=== PATIENT | female | born 1965 | race Two or more races ===

== ENCOUNTER → 2017-03-27 | Outpatient (CLI) | payer BC ==
[2014-04-28 17:12] VITALS: BP 136/70
[~2017-03-27] MED LIST: HYDR200T5 PO; LOSA1TAB16 PO; OMEP20CA9 PO; PRED5TAB PO; SERT25TA4 PO; SULF-143 PO
--- NOTE | 2017-03-27 16:10 | KCIC ---
Exam performed: Bone densitometry. History: Postmenopausal, on steroids Discussion: Bone Densitometry was performed with dual photon absorption of the lumbar spine and proximal femur. Lumbar Spine: Bone density is 0.886g/cm2 for L1-L4. T-Score is -1.5 Left Femur: Bone density is 0.747g/cm2. T-Score is -1.6. Impression: Findings consistent with osteopenia. Electronically signed by: Tre Rodriges MD (03/27/2017 4:07 PM) [id number]
--- NOTE | 2017-03-27 16:18 | KCIC ---
Bilateral digital screening mammograms: Reason for examination: Routine screening. Comparison is made to previous studies dated 06/29/2015 and 05/20/2014. The skin and nipples show no abnormalities. No abnormal axillary lymph nodes are seen. The breast parenchyma is heterogeneously dense. (Breast density: Category C) There are no dominant masses, suspicious calcifications or architectural distortion. A few benign calcifications are again seen. Impression: No evidence of malignancy. Recommend routine screening. Your patient's mammogram demonstrates that she has dense breast tissue (breast density category C or D), which could hide abnormalities, and if she has other risk factors for breast cancer that have been identified, she might benefit from supplemental screening tests that may be suggested by you as her ordering physician. Dense breast tissue, in and of itself, is a relatively common condition. Therefore, this information is not provided to cause undue concern, but rather to raise your awareness and to promote discussion with your patient regarding the presence of other risk factors, in addition to dense breast tissue. Your patient's mammography results will be sent to her. BI-RADS Category 2: Benign. "Our facility is accredited by the [employer] Mammography [employer]." This patient's information has been entered into a reminder system for the patient to be notified with the results of her examination and a target date for the next mammogram. Electronically signed by: Kita Yusuf MD (03/27/2017 4:15 PM) [id number]
== END | disposition home or self-care (01) ==
LOC: KCIC DEXA 15:07
PROVIDERS: ATTEND Family Medicine
DX: Z12.31 Encounter for screening mammogram for malignant neoplasm of breast (principal); M85.88 Other specified disorders of bone density and structure, other site; Z78.0 Asymptomatic menopausal state
CPT/HCPCS: 77080; G0202; 77067

== ENCOUNTER → 2019-07-11 | Outpatient (CLI) | payer BC ==
[2014-04-28 17:12] VITALS: BP 136/70
[~2019-07-11] MED LIST changes: +CONTRAST GIVEN. MC PRN; +IOHEXOL 240 MG/ML 50ML VIAL. PO ONE; +IOHEXOL 300 MG/ML 100ML VIAL. IV ONE; -LOSA1TAB16 PO; +LOSA1TAB19 PO; +OMEP-229 PO; -OMEP20CA9 PO
--- NOTE | 2019-07-11 16:30 | RAD ---
PQRS Compliance statement: One or more of the following individualized dose reduction techniques were utilized for this examination: 1. Automated exposure control. 2. Adjustment of the mA and/or kV according to patient size. 3. Use of iterative reconstruction technique. Indication: Abdominal pain. TECHNIQUE: CT abdomen and pelvis with IV contrast with multiplanar reformats. COMPARISON: 11/04/2013 FINDINGS: Heart is moderately enlarged in size. No pericardial or pleural effusion. Chronic interstitial changes in the bilateral visualized lung bases with focal consolidation in the lateral left lower lobe. Patulous visualized esophagus containing oral contrast. Liver, pancreas, adrenals and kidneys are within normal limits. No free pelvic fluid or ascites. 3.5 x 2.8 cm low attenuating lesion is seen in the spleen which is new from previous exam from 2013. Status post cholecystectomy. No enlarged retroperitoneal or pelvic adenopathy. Uterus is present. Normal appendix. Dilated loops of jejunum noted containing oral contrast. Urinary bladder demonstrates no radiopaque stone. No pneumoperitoneum. No suspicious bony lesion. IMPRESSION: Dilated loops of jejunum containing oral contrast, nonspecific. No convincing evidence of bowel obstruction. Follow-up recommended. Splenic lesion, new from previous CT from 2018 may be a pseudocyst. Attention on future imaging. Electronically signed by: Kenneth Ambriz DO (07/11/2019 4:27 PM) [facility]
== END | disposition home or self-care (01) ==
LOC: CT 14:30
PROVIDERS: ATTEND Internal Medicine
DX: I51.7 Cardiomegaly (principal); Z90.49 Acquired absence of other specified parts of digestive tract
CPT/HCPCS: 74177; Q9966; Q9967

== ENCOUNTER → 2020-03-06 | Outpatient (CLI) | payer BC ==
[2014-04-28 17:12] VITALS: BP 136/70
[~2020-03-06] MED LIST changes: -CONTRAST GIVEN. MC PRN; -IOHEXOL 240 MG/ML 50ML VIAL. PO ONE; -IOHEXOL 300 MG/ML 100ML VIAL. IV ONE; -OMEP-229 PO; +OMEP20CA16 PO
--- NOTE | 2020-03-06 17:40 | KCIC ---
Bilateral digital screening mammograms: Reason for examination: Routine screening. Comparison is made to previous studies dated between 03/27/2017 and 05/20/2014. Interpretation was made with the benefit of CAD. The skin and nipples show no abnormalities. No abnormal axillary lymph nodes are seen. The breast parenchyma is extremely dense. (Breast density: Category D) There continues to be some nodular asymmetry posterior superiorly in the left breast on oblique view which is unchanged. There are no new dominant masses, suspicious calcifications or architectural distortion. A few benign calcifications are again seen. Impression: No evidence of malignancy. Recommend routine screening. Your patient's mammogram demonstrates that she has dense breast tissue (breast density category C or D), which could hide abnormalities, and if she has other risk factors for breast cancer that have been identified, she might benefit from supplemental screening tests that may be suggested by you as her ordering physician. Dense breast tissue, in and of itself, is a relatively common condition. Therefore, this information is not provided to cause undue concern, but rather to raise your awareness and to promote discussion with your patient regarding the presence of other risk factors, in addition to dense breast tissue. Your patient's mammography results will be sent to her. BI-RADS Category 2: Benign. "Our facility is accredited by the [employer]ammography [employer]." This patient's information has been entered into a reminder system for the patient to be notified with the results of her examination and a target date for the next mammogram. Electronically signed by: Kita Yusuf MD (03/06/2020 5:37 PM) [id number]
== END | disposition home or self-care (01) ==
LOC: KCIC MAMMO 13:47
PROVIDERS: ATTEND Family Medicine
DX: Z12.31 Encounter for screening mammogram for malignant neoplasm of breast (principal); N64.89 Other specified disorders of breast
CPT/HCPCS: 77067

== ENCOUNTER → 2021-05-27 | Outpatient (CLI) | payer BC ==
[2014-04-28 17:12] VITALS: BP 136/70
[~2021-05-27] MED LIST changes: +SERT-266 PO; -SERT25TA4 PO
--- NOTE | 2021-05-27 16:36 | RAD ---
EXAM: Thyroid sonogram. HISTORY: Adenoma. TECHNIQUE: Sonographic imaging of the thyroid was performed. COMPARISON: 06/10/2014. FINDINGS: The right thyroid lobe measures 5.6 x 2.4 x 2.4 cm. The left thyroid lobe measures 4.7 x 1. 3 x 1.5 cm. The thyroid isthmus measures 4 mm. The thyroid parenchyma is diffusely heterogeneous. There are multiple right thyroid nodules. The largest nodule is seen within the superior right thyroi d lobe. This is heterogeneous and predominantly isoechoic with indistinct margins. This demonstrates wider than tall morphology and measures 2.8 x 2.4 x 1.4 cm, previously measuring 3.0 x 1.9 x 1.3 cm. The second largest nodule on along the posterior mid zone of the right thyroid lobe measuring 2.4 x 1 .6 x 1.1 cm, previously measuring 1.6 x 1.2 x 0.8 cm. This is circumscribed, hypoechoic and demonstra gilmer a wider than tall morphology. The third largest nodule on the right is seen within the lower pole measuring 1.4 x 1.2 x 0.7 cm, pre viously measuring 1.7 x 1.1 x 0.6 cm. This is heterogeneous and predominantly isoechoic with indistin ct margins and wider than tall morphology. The fourth largest nodule on the right is seen within the upper mid zone measuring 1.1 x 1.0 x 0.8 cm , previously measuring 0.9 x 0.9 x 0.9 cm. This is hypoechoic and peripherally calcified. There are multiple left thyroid nodules. The largest nodule is seen within the superior left thyroid lobe measuring 1.8 x 1.1 x 0.6 cm, previously measuring 1.2 x 1.1 x 0.4 cm. This is predominantly iso echoic to hypoechoic. This demonstrates wider than tall morphology. The second largest lesion on the left is seen within the lower mid zone measuring 0.7 x 0.6 x 0.5 cm, previously measuring 0.5 x 0.4 x 0.3 cm. This is heterogeneous and predominantly isoechoic with blad yu than tall morphology. There is a 6 x 6 x 2 mm circumscribed hypoechoic nodule or cyst with wider than tall morphology along the left aspect of the thyroid isthmus, previously measuring 6 x 5 x 2 mm. IMPRESSION: 1. Heterogeneous thyroid containing multiple nodules. 2. Increase in the size of a circumscribed solid hypoechoic nodule along the posterior mid zone of th e right thyroid lobe measuring 2.4 x 1.6 x 1.1 cm, previously measuring 1.6 x 1.2 x 0.8 cm. TI-RADS C ategory 4: Fine-needle aspiration is recommended, if not previously performed. The sonographic appear ance of this lesion favors a possible parathyroid adenoma. Correlate for endocrinopathy. 3. Dominant nodule within the right thyroid lobe measuring 2.4 cm. TI-RADS Category 4: Fine-needle as piration is recommended, if not previously performed. 4. Multiple additional thyroid nodules, the majority of which are subcentimeter in size or decreased in size. Follow-up can be performed to confirm stability. Electronically signed by: Hayley Damon MD (05/27/2021 4:34 PM) [id number]
== END ==
LOC: US 15:24
PROVIDERS: ATTEND Internal Medicine
DX: E04.2 Nontoxic multinodular goiter (principal); D34 Benign neoplasm of thyroid gland
CPT/HCPCS: 76536

== ENCOUNTER → 2021-06-28 | Outpatient (CLI) | payer BC ==
[2014-04-28 17:12] VITALS: BP 136/70
[~2021-06-28] MED LIST changes: +LIDOCAINE 1% Multi-Dose 20 ML VIAL. INJ ONE
--- NOTE | 2021-06-28 11:31 | RAD ---
EXAMINATION: ULTRASOUND-GUIDED FINE NEEDLE ASPIRATION RIGHT THYROID NODULE CLINICAL HISTORY: Suspicious right thyroid nodule COMPARISON: Thyroid ultrasound 05/19/2021 PROCEDURE: Utilizing an storeroom keeper, the risks, benefits, treatment options, potential complications, and person garret to be involved were discussed with the patient. All questions were answered and consent was obtai satya. The patient indicated willingness to proceed. Ultrasound guidance was used to target the right thyroid nodule of interest. The neck was then steril eugenia prepped and draped. A time out was performed immediately prior to the start of the procedure with the procedural team, correctly identifying the patient name, date of , procedure, and site/side of procedure to be performed. Under ultrasound guidance, 1% lidocaine was administered at the skin and in the soft tissues along th e expected biopsy path. 4 separate passes were made into the nodule with a 22-gauge needle. To and fr o movement of the needle was performed in the nodule while aspiration was applied. After all needles were removed, good hemostasis was achieved with light manual compression. No signif icant blood loss. No immediate complications were encountered. IMPRESSION: Successful ultrasound-guided fine needle aspiration of a right thyroid nodule. Electronically signed by: Jomar Martinez DO (06/28/2021 11:28 AM) [id number]
[2021-06-28 12:00] LABS: FREE T4 1.13 ng/dL (0.76-1.46); THYROID STIM HORMONE (TSH) 1.26 uIU/mL (0.358-3.74)
[2021-06-28 23:07] LABS: CALCIUM PTH 9.1 mg/dL (8.7-10.2); CREATININE PTH 0.85 mg/dL (0.57-1.00); PHOSPHORUS PTH 3.8 mg/dL (3.0-4.3); PTH INTACT 46 pg/mL (15-65)
== END | disposition home or self-care (01) ==
LOC: US 10:17
PROVIDERS: ATTEND Surgery
DX: E04.1 Nontoxic single thyroid nodule (principal); I10 Essential (primary) hypertension; F32.9 Major depressive disorder, single episode, unspecified; Z79.899 Other long term (current) drug therapy; Z98.890 Other specified postprocedural states
CPT/HCPCS: 10005; 36415; 83970; 84436; 84439; 84443; 84480